=== PATIENT | female | born 1955 | race Caucasian/White ===

== ENCOUNTER → 2018-11-21 | Outpatient (CLI) | payer OTHER ==
[~2018-11-21] MED LIST: ALPRAZOLAM PO; AMBIEN 10 MG TA10 MG PO; CARISOPRODOL 3350 M1 PO; CELEXA 20 MG TA20 M1 PO; CELEXA PO; DEXILANT60 MG PO; DIAZEPAM 5 MG5 MG PO; ENDOCET 5-3251 EACH PO; HYDROCODON-ACE1 EAC7; HYDROCODON-ACE1 EACH PO; NABUMETONE 500500 M1 PO; NORCO 5-325 TA1 EACH PO; TRIAMTERENE-HC1 EAC1 PO; XANAX 0.25 MG0.25 MG PO
--- NOTE | 2018-11-23 06:50 | SLE ---
[facility] [place] [address] POLYSOMNOGRAPHY STUDY Name: GIOVANNY TRAN Room #: [facility]#: [id number] Admission: 11/21/18 ������������������ Attend Phys: Bennett Brizuela MD Discharge: ������������������ Date of : 53 Report #: [id number] THIS REPORT FOR: //name// CC: Bennett Horner DATE OF SERVICE: 11/21/2018 REFERRING PROVIDER: LAN Davis The patient is a 63-year-old who weighs 180 pounds with a BMI of 31.9. The patient's Vincent score was 0. The patient underwent diagnostic sleep study at [facility]. During the night study, the patient spent 413 minutes in bed and slept for 318 minutes with a sleep efficiency of 76%. Sleep latency was 22 minutes with a REM latency of 254 minutes. Overall sleep architecture showed increased stage 1 and stage 2 sleep, absent N3 sleep and significantly reduced REM sleep, which was only 0.5% of total sleep time. During the night study, the patient had no apneas and 11 hypopneas. The patient's apnea-hypopnea index was 2.1 per hour. REM AHI was 0 per hour due to no respiratory events during REM sleep. The patient's supine AHI was 5.5 per hour. EKG monitoring revealed normal sinus rhythm. Average heart rate 77 beats per minute. No sustained arrhythmias observed. PLMS were seen at index of 28.9 per hour and 2.6 per hour caused EEG arousals. Nocturnal oximetry study revealed an average oxygen saturation of 95% with the lowest of 88%. Only 0.4 minutes were spent at oxygen saturation of less than 89%. Due to low AHI, the patient did not meet the split night criteria for CPAP initiation. IMPRESSION: 1. No clinically significant sleep disordered breathing. The patient's apnea-hypopnea index for the entire night was only 2.1 per hour. 2. No clinically significant nocturnal hypoxia. 3. Moderate periodic limb movements of sleep. RECOMMENDATIONS: 1. The patient did not meet the criteria for CPAP initiation. [facility] [address] [place] [address] POLYSOMNOGRAPHY STUDY Name: GIOVANNY TRAN Room #: [facility]#: [id number] Admission: 11/21/18 ������������������ Attend Phys: Bennett Brizuela MD Discharge: ������������������ Date of : 53 Report #: [id number] 2. Weight loss is advised. 3. 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 4. PLMS does not need to be treated unless the patient has symptoms of restless legs during the day. ��������������������������������������������� <ELECTRONICALLY SIGNED> ���������������������������������������� By: Bennett Brizuela MD ��������������������������������������������� 11/23/18 0650 1828 1842 Bennett Brizuela MD /nt
== END ==
LOC: SLEEPLAB 20:09
DX: G47.10 Hypersomnia, unspecified (principal); G47.61 Periodic limb movement disorder; Z68.31 Body mass index [BMI] 31.0-31.9, adult

== ENCOUNTER 2020-03-05 13:56 | Inpatient (IN) | payer OTHER ==
[~2020-03-05] VITALS: Ht 160 cm; Wt 85.7 kg
[2020-03-05 13:57] VITALS: BP 119/71
[2020-03-05 16:07] LABS: ABSOLUTE NEUTROPHILS 5.8 thou/uL (1.4-8.2); EOSINOPHILS 2.4 % (0.0-3.0); HEMATOCRIT 34.5 % (37.0-47.0); HEMOGLOBIN 11.7 gm/dL (12.0-15.0); LYMPHOCYTES 19.5 % (24.0-44.0); MCH 30.9 pg (26.0-34.0); MCHC 33.9 g/dL (28.0-37.0); PLATELET COUNT 184 thou/uL (150-400); POLYS 72.1 % (36.0-66.0); RBC 3.79 mil/uL (4.20-5.00); RDW 14.6 % (10.5-14.5); WBC 8.1 thou/uL (4.0-11.0)
[2020-03-05 16:30] LABS: ALBUMIN 3.7 g/dL (3.4-5.0); CALCIUM 8.5 mg/dL (8.5-10.1); CREATININE 1.4 mg/dL (0.6-1.0); MAGNESIUM 2.1 mg/dL (1.8-2.4); PHOSPHORUS 3.7 mg/dL (2.5-4.9); TOTAL BILIRUBIN 0.3 mg/dL (0.2-1.0); TOTAL PROTEIN 6.8 g/dL (6.4-8.2); TROPONIN-I 0.1 ng/mL (<0.06)
[2020-03-05 16:32] LABS: POTASSIUM 2.5 mmol/L (3.5-5.1)
[2020-03-05 17:17] LABS: URINE BILIRUBIN NEGATIVE (Negative); URINE BLOOD NEGATIVE (Negative); URINE CLARITY CLEAR; URINE COLOR YELLOW; URINE GLUCOSE-RANDOM* NEGATIVE (Negative); URINE KETONES NEGATIVE (Negative); URINE LEUKOCYTES-REFLEX NEGATIVE (Negative); URINE NITRITE-REFLEX NEGATIVE (Negative); URINE PROTEIN (DIPSTICK) TRACE (Negative); URINE SPECIFIC GRAVITY 1.015 (1.005-1.035); URINE UROBILINOGEN 0.2 E.U./dl (0.2-1.0)
[2020-03-05 17:58] VITALS: BP 125/73
[2020-03-05 19:29] VITALS: BP 111/74
[2020-03-05 19:54] VITALS: BP 114/71
[2020-03-05] MEDS ORDERED: NEURONTIN 300M300 M2 (22:09)
--- NOTE | 2020-03-05 22:56 | NUR ---
PT ADMITTED TO UNIT AT APPROXIMATELY 1930. PT IS A/O X4 AND UP WITH SBA TO THE BR WITH A GB. PT C/O PAIN IN NECK AND BACK. PRN PAIN MEDICATION GIVEN DIRECTED. PT IS CURRENTLY LYING IN HER BED AND APPEARS TO BE SLEEPING. ADMISSION EDUCATION AND ASSESSMENT COMPLETED AND DOCUMENTED. EDUCATED PT ON FALL RISK PRECAUTIONS AND CALL LIGHT IS WITHIN REACH. WILL CONTINUE TO MONITOR.
[2020-03-06 06:03] LABS: HEMATOCRIT 30.4 % (37.0-47.0); HEMOGLOBIN 10.3 gm/dL (12.0-15.0); MCH 31.2 pg (26.0-34.0); MCHC 33.9 g/dL (28.0-37.0); MCV 92.1 fL (80.0-100.0); RBC 3.3 mil/uL (4.20-5.00); WBC 7.5 thou/uL (4.0-11.0)
[2020-03-06 06:34] LABS: CALCIUM 7.6 mg/dL (8.5-10.1); POTASSIUM 3.4 mmol/L (3.5-5.1)
[2020-03-06 07:16] VITALS: BP 106/61
--- NOTE | 2020-03-06 08:32 | EKG ---
[facility] [place] [address] ELECTROCARDIOGRAM REPORT Name: GIOVANNY TRAN Room #: 452-P ADM IN M.R.#: [id number] Admission: 03/05/20 Attend Phys: Alex Woodward MD Discharge: Date of : 53 Report #: [id number] THIS REPORT FOR: cc: Ceci Horner MD, Melanie MD Lundgren,Akash Darden MD [facility] ~ THIS REPORT FOR: //name// [facility] ED Test Date: 2020-03-05 Test Time: 17:20:29 Pat Name: GIOVANNY TRAN Department: Room: [facility] Gender: F Brand Representative: : 1955 Requested By: Jake Swift Order Number: [id number] MD: Akash Acevedo Measurements Intervals [place] Rate: 72 P: 33 MO: 144 QRS: 18 QRSD: 92 T: -9 QT: 474 QTc: 519 Interpretive Statements Sinus rhythm Abnormal R-wave progression, early transition Borderline T abnormalities, anterior leads Prolonged QT interval Compared to ECG 07/08/2012 11:26:58 T-wave abnormality now present Prolonged QT interval now present Electronically Signed On 03-06-2020 8:32:03 CDT by Akash Acevedo [email or web address] <ELECTRONICALLY SIGNED> By: Akash Acevedo MD, [facility] 03/06/20 0832 172 172 Akash Acevedo MD, [facility] /EPI
--- NOTE | 2020-03-06 11:47 | NUR ---
PT ADMITTED RELATED TO FALLS, WEAKNESS. CM REVIEWED CHART AND SPOKE WITH CARE TEAM. CM CALLED AND SPOKE WITH PT THIS DAY. PT APPEARED TO BE A&O X4. CM ROLE INTRODUCED. PT INDICATED SHE LIVES IN AN APARTMENT ALONE WITH 8 STEPS TO ENTER AND NONE INSIDE. 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 PT INDICATED NO DME OR HH HX. PT INDICATED SHE STILL DRIVES. PT INDICATED SHE IS RECEPTIVE TO HH SERVICES UPON DC. PT INDICATED NO PREFERENCE OF PROVIDERS. REFERRALS TO BE SENT. PT INDICATED SHE WILL NEED TRANSPORT HOME THIS DAY. CM TO CONFIRM HH PROVIDER THEN SET UP [facility]SP[facility]. CM TO INQUIRE WITH PHYSICIAN ABOUT WHETHER PT NEEDS A FWW FOR USE UPON DC. CM TO FOLLOW INDICATED WITH ANTICPATED DC HOME THIS DAY.
--- NOTE | 2020-03-06 12:19 | NUR ---
FAXED REFERRAL TO [facility] HH SPOKE WITH MITCHEL IN INTAKE SHE RECEIVED REFERRAL AND WILL ACCEPT. DP TO FOLLOW
[2020-03-06 12:20] VITALS: BP 106/61
[2020-03-06] MEDS ORDERED: ULTRA-LIGHT RO1 EACH (13:15)
[2020-03-06 13:23] VITALS: BP 106/61
[2020-03-06 15:23] VITALS: BP 106/61
--- NOTE | 2020-03-06 15:35 | NUR ---
Assumed pt care at 7am.Pt in bed resting without c/o.Assessment completed.vss. Pt tolerated diet and meds.Dr Woodward here and dc order noted.Walker supplied to pt for home use.Dc summary compile and reviewed with pt.Between 1600 &1630,pt will dc home per [facility].Pt ambulated in the room and hallways today with therapist.Good endurance noted.Will continue to monitor.
== END 2020-03-06 18:41 | disposition home health service (06) | DRG 557 ==
LOC: ER 13:56 → EROBS 17:46 → 4W 17:46
PROVIDERS: Emergency Medicine; ADMIT Hospitalist; ATTEND Hospitalist
DX: M62.82 Rhabdomyolysis (principal); N17.0 Acute kidney failure with tubular necrosis; E87.2 Acidosis; E87.6 Hypokalemia; M41.86 Other forms of scoliosis, lumbar region; E78.00 Pure hypercholesterolemia, unspecified; F17.210 Nicotine dependence, cigarettes, uncomplicated; I10 Essential (primary) hypertension; F32.9 Major depressive disorder, single episode, unspecified; F41.9 Anxiety disorder, unspecified; M62.84 Sarcopenia; G47.00 Insomnia, unspecified; S20.229A Contusion of unspecified back wall of thorax, initial encounter; S09.8XXA Other specified injuries of head, initial encounter; W18.39XA Other fall on same level, initial encounter; Z60.2 Problems related to living alone; Y93.89 Activity, other specified; Z79.899 Other long term (current) drug therapy; Y92.89 Other specified places as the place of occurrence of the external cause; Y99.8 Other external cause status
CPT/HCPCS: 10040; 10045

== ENCOUNTER 2020-03-14 15:11 | Inpatient (IN) | payer OTHER ==
[~2020-03-14] VITALS: Ht 160 cm; Wt 85.7 kg
[~2020-03-14 15:11] MED LIST changes: +NEURONTIN 300M300 M2; +ULTRA-LIGHT RO1 EACH
[2020-03-14 15:26] VITALS: BP 111/64
[2020-03-14 16:27] LABS: ABSOLUTE NEUTROPHILS 4.8 thou/uL (1.4-8.2); BASOPHILS 0.6 % (0.0-2.0); EOSINOPHILS 3.8 % (0.0-3.0); HEMOGLOBIN 9.5 gm/dL (12.0-15.0); LYMPHOCYTES 20.9 % (24.0-44.0); MCH 31.6 pg (26.0-34.0); MCHC 34.1 g/dL (28.0-37.0); MCV 92.7 fL (80.0-100.0); MONOCYTES 5.7 % (1.0-8.0); PLATELET COUNT 298 thou/uL (150-400); RBC 3.02 mil/uL (4.20-5.00); RDW 15.8 % (10.5-14.5)
[2020-03-14 16:36] LABS: ALBUMIN 3.3 g/dL (3.4-5.0); CALCIUM 8.7 mg/dL (8.5-10.1); MAGNESIUM 2.5 mg/dL (1.8-2.4); TOTAL BILIRUBIN 0.4 mg/dL (0.2-1.0); TOTAL PROTEIN 6.7 g/dL (6.4-8.2)
[2020-03-14 16:38] LABS: POTASSIUM 2.1 mmol/L (3.5-5.1)
[2020-03-14 17:56] VITALS: BP 140/80
[2020-03-14 18:10] VITALS: BP 140/80
[2020-03-14 18:16] LABS: % SATURATION 21 % (20-39); IRON 62 ug/dL (50-170); TIBC 300 ug/dL (250-450)
[2020-03-14 19:40] VITALS: BP 98/67
--- NOTE | 2020-03-14 20:03 | NUR ---
PT ARRIVED TO FLOOR FROM ED PER WC AT 1824 IN STABLE CONDITION.ADMISSION HX AND EDUCATION COMPLETED.VSS.BOX LUNCH GIVEN. REPORT OFF TO MARYELLEN RN.
[2020-03-14 20:36] LABS: TROPONIN-I <0.06 ng/mL (<0.06)
[2020-03-15 01:23] LABS: ABSOLUTE NEUTROPHILS 4.2 thou/uL (1.4-8.2); BASOPHILS 0.6 % (0.0-2.0); EOSINOPHILS 3.8 % (0.0-3.0); HEMATOCRIT 25.9 % (37.0-47.0); HEMOGLOBIN 8.8 gm/dL (12.0-15.0); LYMPHOCYTES 29.6 % (24.0-44.0); MCH 31.8 pg (26.0-34.0); MCHC 34.1 g/dL (28.0-37.0); MCV 93.2 fL (80.0-100.0); PLATELET COUNT 255 thou/uL (150-400); RBC 2.78 mil/uL (4.20-5.00); RDW 15.6 % (10.5-14.5)
[2020-03-15 01:37] LABS: CALCIUM 8.3 mg/dL (8.5-10.1); CREATININE 0.9 mg/dL (0.6-1.0); MAGNESIUM 2.4 mg/dL (1.8-2.4)
[2020-03-15 01:39] LABS: ALBUMIN 2.9 g/dL (3.4-5.0); CALCIUM 8.4 mg/dL (8.5-10.1); CREATININE 0.9 mg/dL (0.6-1.0); MAGNESIUM 2.4 mg/dL (1.8-2.4); PHOSPHORUS 2.2 mg/dL (2.5-4.9)
[2020-03-15 01:43] LABS: POTASSIUM 2.8 mmol/L (3.5-5.1)
--- NOTE | 2020-03-15 05:24 | NUR ---
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
[2020-03-15 07:27] VITALS: BP 130/60
--- NOTE | 2020-03-15 08:13 | EKG ---
[facility] [place] [address] ELECTROCARDIOGRAM REPORT Name: GIOVANNY TRAN Room #: 454-P ADM IN M.R.#: [id number] Admission: 03/14/20 Attend Phys: Dayanna Meadows MD Discharge: Date of : 53 Report #: [id number] THIS REPORT FOR: cc: Ceci Horner MD, Melanie MD Couchonnal,Gallo Frank MD ~ THIS REPORT FOR: //name// [facility] ED Test Date: 2020-03-14 Test Time: 16:59:04 Pat Name: GIOVANNY TRAN Department: Room: [facility] Gender: F Tool Distributor: no : 1955 Requested By: Eden Castle Order Number: [id number] MD: Gallo Lambert Measurements Intervals [place] Rate: 65 P: 31 [place]: 131 QRS: 13 QRSD: 94 T: -3 QT: 484 QTc: 504 Interpretive Statements Sinus rhythm Abnormal R-wave progression, early transition Borderline T abnormalities, diffuse leads Prolonged QT interval Compared to ECG 03/05/2020 17:20:29 No significant changes Electronically Signed On 03-15-2020 8:13:18 CDT by Gallo Lambert [email or web address] <ELECTRONICALLY SIGNED> By: Gallo Lambert MD 03/15/20812 165 58 Gallo Lambert MD /EPI
[2020-03-15 10:24] LABS: ABSOLUTE RETIC COUNT 0.1416 10^6/uL; OBSERVED RETIC COUNT 5.25 % (0.6-2.6)
[2020-03-15 10:32] LABS: % SATURATION 21 % (20-39); IRON 65 ug/dL (50-170); TIBC 313 ug/dL (250-450)
--- NOTE | 2020-03-15 15:03 | NUR ---
PT ADMITTED RELATED TO HYPOKALEMIA. CM REVIEWED CHART AND SPOKE WITH CARE TEAM. CM ATTEMPTED PC TO PT'S ROOM NUMEROUS TIMES THIS DAY WITH NO RESPONSE. PT IS FAMILAR TO CM FROM PREVIOUS ADMISSION. PT RESIDES IN AN APARTMENT ALONE WITH 8 STEPS TO ENTER AND NO STEPS INSIDE. 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 REFERRAL HAD BEEN SENT TO [facility] FOR HH SERVICES UPON DC HOME 03/06. CM CALLED [facility] TO NOTIFY THEM OF PT'S ADMISSION AND THEY INDICATED THAT THEY HADN'T BEEN ABLE TO START PT DUE TO LACK OF CONTACT. THEY INDICATED THAT THEY ANTICIPATE THAT THEY WOULD BE ABLE TO ACCEPT PT BACK IF SERVICES ARE NEEDED UPON DC. CM TO TRY TO CONFIRM CONTACT INFO AND UPDATE [facility]. PT ASSESSED PT AND INDICATED THAT SHE WOULD BE SAFE TO RETURN HOME WITH HH ONCE MEDICALLY STABLE THEY DISCHARGED PT. SHOULD PT BE MEDICALLY STABLE TO DC OVER THE WEEKEND CONTACT [facility] HOME HEALTH FAX ORDERD TO .
[2020-03-15 15:54] LABS: HEMATOCRIT 24.4 % (37.0-47.0); HEMOGLOBIN 8.3 gm/dL (12.0-15.0)
--- NOTE | 2020-03-15 16:20 | 2DMMODE ---
[facility] [place] [address] 2 D/M-MODE ECHOCARDIOGRAM Name: GIOVANNY TRAN Room #: 454-P ADM IN M.R.#: [id number] Admission: 03/14/20 Attend Phys: Dayanna Meadows MD Discharge: Date of : 53 Report #: [id number] THIS REPORT FOR: cc: Ceci Horner MD, Melanie MD Lammoglia, Francisco J. MD ~ APPROVED REPORT Study performed: 03/15/2020 14:34:47 EXAM: Comprehensive 2D, Doppler, and color-flow Echocardiogram Patient Location: Bedside Room #: 454 Status: routine BSA: 1.87 HR: 86 bpm BP: 130/60 mmHg Rhythm: NSR Other Information Study Quality: Adequate Indications Hypertension/HDD 2D Dimensions IVSd: 8.68 (7-11mm) LVOT Diam: 18.23 (18-24mm) LVDd: 44.58 mm PWd: 9.59 (7-11mm) Ascending Ao: 24.57 (22-36mm) LVDs: 27.65 (25-40mm) Aortic Root: 29.41 mm IVC: 21.00 mm Aortic Valve AoV Peak Joe.: 1.64 m/s AO Peak Gr.: 10.77 mmHg LVOT Max P.65 mmHg LVOT Max V: 1.47 m/s TEMO Vmax: 2.34 cm2 Mitral Valve E/A Ratio: 1.5 MV Decel. Time: 134.94 ms MV E Max Joe.: 1.27 m/s MV A Joe.: 0.87 m/s MV PHT: 39.13 ms [facility] [address] [place] [address] 2 D/M-MODE ECHOCARDIOGRAM Name: GIOVANNY TRAN Room #: 454-P [facility] IN [facility]#: [id number] Admission: 03/14/20 Attend Phys: Dayanna Meadows, Discharge: Date of : 53 Report #: [id number] IVRT: 59.98 ms Pulmonary Valve PV Peak Joe.: 0.94 m/s PV Peak Gr.: 3.53 mmHg Pulmonary Vein P Vein S: 0.69 m/s P Vein A: 0.29 m/s P Vein D: 0.49 m/s P Vein A Dur.: 101.5 msec P Vein S/D Ratio: 1.41 Tricuspid Valve TR Peak Joe.: 3.04 m/s TR Peak Gr.: 36.94 mmHg PA Pressure: 47.00 mmHg Left Ventricle The left ventricle is normal size. There is normal LV segmental wall motion. There is normal left ventricular wall thickness. The left ventricular systolic function is normal. The left ventricular ejection fraction is within the normal range. LVEF is 65-70%. This study is not technically sufficient to allow evaluation of the LV diastolic function. Right Ventricle The right ventricle is normal size. The right ventricular systolic function is normal. Atria Left atrium is at the upper limits of normal. Right atrium is at the upper limits of normal. Aortic Valve The aortic valve is normal in structure. The Aortic valve is sclerotic. Mild aortic regurgitation. There is no aortic valvular stenosis. Mitral Valve The mitral valve is normal in structure. Mild mitral regurgitation. No evidence of mitral valve stenosis. Tricuspid Valve The tricuspid valve is normal in structure. There is mild tricuspid regurgitation. Estimated PAP 47 mmHg. There is moderate pulmonary hypertension. Pulmonic Valve [facility] [address] [place] [address] 2 D/M-MODE ECHOCARDIOGRAM Name: GIOVANNY TRAN Room #: 454-P [facility] IN M.R.#: [id number] Admission: 03/14/20 Attend Phys: Dayanna Meadows, Discharge: Date of : 53 Report #: [id number] The pulmonary valve is normal in structure. There is no pulmonic valvular regurgitation. Great Vessels The aortic root is normal in size. IVC is dilated and collapses <50% with inspiration. Pericardium There is no pericardial effusion. <Conclusion> The left ventricle is normal size. LVEF is 65-70%. The aortic valve is normal in structure. The Aortic valve is sclerotic. Mild aortic regurgitation. The mitral valve is normal in structure. Mild mitral regurgitation. The tricuspid valve is normal in structure. There is mild tricuspid regurgitation. Estimated PAP 47 mmHg. There is moderate pulmonary hypertension. The pulmonary valve is normal in structure. There is no pericardial effusion. <ELECTRONICALLY SIGNED> By: Ty Zamora MD 03/15/20 1619 18 18 Ty Zamora MD /INF
[2020-03-15 18:05] LABS: MAGNESIUM 2.2 mg/dL (1.8-2.4); PHOSPHORUS 1.9 mg/dL (2.5-4.9)
[2020-03-15 18:08] LABS: POTASSIUM 4.3 mmol/L (3.5-5.1)
--- NOTE | 2020-03-15 19:21 | NUR ---
Assumed pt care at 7am.Pt in and out of bed with assist x1.Assessment completed.vss.Pt has good appetite at all meals and tolerated meds.Dr Meadows her e,order noted.Consult called to Jake and message left.Later this evening,pt requested for sleepin aid and lidocaine patch.Dr Meadows notified and order noted.Pain pill given later this evening with partial relief.Will continue to monitor.
[2020-03-15 19:54] VITALS: BP 125/68
--- NOTE | 2020-03-16 05:09 | NUR ---
PATIENT ALERT AND ORIENTED X4. COOPERATIVE WITH CARE. IVF INFUSING W/O COMPLICATION. DENIES PAIN. REQUESTED AND GIVEN SLEEP AID WITH GOOD RESULTS. TELE WITH NSR. UP TO BATHROOM WITH SBA. AM LABS, WILL MONITOR. RESTING QUIETLY.
[2020-03-16 05:52] LABS: ABSOLUTE NEUTROPHILS 3.5 thou/uL (1.4-8.2); BASOPHILS 0.6 % (0.0-2.0); EOSINOPHILS 2.7 % (0.0-3.0); HEMATOCRIT 23.1 % (37.0-47.0); HEMOGLOBIN 7.8 gm/dL (12.0-15.0); LYMPHOCYTES 30.8 % (24.0-44.0); MCH 32.1 pg (26.0-34.0); MCHC 33.8 g/dL (28.0-37.0); MONOCYTES 5.8 % (1.0-8.0); PLATELET COUNT 233 thou/uL (150-400); POLYS 60.1 % (36.0-66.0); RBC 2.44 mil/uL (4.20-5.00); RDW 16.8 % (10.5-14.5); WBC 5.8 thou/uL (4.0-11.0)
[2020-03-16 06:47] LABS: ALBUMIN 2.6 g/dL (3.4-5.0); CALCIUM 8.1 mg/dL (8.5-10.1); CREATININE 0.7 mg/dL (0.6-1.0); MAGNESIUM 2.1 mg/dL (1.8-2.4); PHOSPHORUS 2.7 mg/dL (2.5-4.9); POTASSIUM 4.8 mmol/L (3.5-5.1); TOTAL BILIRUBIN 0.2 mg/dL (0.2-1.0); TOTAL PROTEIN 5.6 g/dL (6.4-8.2)
[2020-03-16 08:26] VITALS: BP 108/57
[2020-03-16 15:28] VITALS: BP 104/74
[2020-03-16 19:20] VITALS: BP 139/72
--- NOTE | 2020-03-16 19:28 | NUR ---
Assumed pt care at 7am.Assessment completed.vss.pt reported sleeping good last night like a baby.Dr Woodward and Rafia here early this shift ,order noted.Pt has good appetite and loves talking.K+ level today was 4.8 Pt up to br several times with assist.Pain med given once this shift with relief.Fall precaution in place.Will continue to monitor.
--- NOTE | 2020-03-17 02:56 | NUR ---
ASSUMED CARE OF PT AT 1900. PT IS A/O X4. VSS. AFEBRILE. C/O PAIN AND INSOMNIA. PRN PAIN AND SLEEP MEDICATION GIVEN DIRECTED. CURRENTLY, PT IS IN HER BED AND APPEARS TO BE WATCHING TV. FALL PRECAUTIONS ARE IN PLACE, CALL LIGHT IS WITHIN REACH. WILL CONTINUE TO MONITOR.
[2020-03-17 05:41] LABS: HEMOGLOBIN 8.5 gm/dL (12.0-15.0); MCH 32.6 pg (26.0-34.0); MCHC 33.8 g/dL (28.0-37.0); MCV 96.3 fL (80.0-100.0); RBC 2.6 mil/uL (4.20-5.00); RDW 19.1 % (10.5-14.5); WBC 6.9 thou/uL (4.0-11.0)
[2020-03-17 05:58] LABS: CALCIUM 8.9 mg/dL (8.5-10.1); CREATININE 0.7 mg/dL (0.6-1.0); POTASSIUM 4.1 mmol/L (3.5-5.1)
[2020-03-17 07:32] VITALS: BP 111/72
[2020-03-17] MEDS ORDERED: PROTONIX 20 MG20 MG PO (09:00)
--- NOTE | 2020-03-17 09:26 | NUR ---
A/O, calm and pleasant; claiming of feeling well, excited about the discharge.
[2020-03-17 09:27] VITALS: BP 111/72
--- NOTE | 2020-03-17 11:42 | NUR ---
DC paper faxed to [phone], have tried to do report to [phone] times, no reponse yet, will keep trying.
--- NOTE | 2020-03-17 16:26 | NUR ---
Called [phone], taked to [place] about the DC and fax, left the phone number of [facility] for [facility].
[2020-03-18 11:46] VITALS: BP 111/72
--- NOTE | 2020-03-18 15:45 | NUR ---
PT DISCHARGED ON SATURDAY 03/17 FAXED DC ORDERS/SUMMARY TO [facility] HH RECEIVED CONFIRMATION.
--- NOTE | 2020-03-21 03:59 | HC ---
[facility] [place] [address] CONSULTATION Name: GIOVANNY TRAN Room #: 454-P [facility] IN M.R.#: [id number] Admission: 03/14/20 Attend Phys: Dayanna Meadows MD Discharge: 03/17/20 Date of : 53 Report #: [id number] THIS REPORT FOR: cc: Ceci Horner MD,Sanchez Werner MD, MD ~ CC: Dayanna Horner HISTORY OF PRESENT ILLNESS: This is a 64-year-old female patient who is difficult to evaluate. She says that she had some episodes where she lost the strength in the arm and legs. She was too weak. She is still weak. She was found to have a lot of electrolyte imbalances and that is being corrected and she is feeling better. In fact, her potassium went as low as 2.1. She also has low potassium even before that. She does not know what triggered it. She already had an MRI of the brain and carotid Doppler and they were unremarkable. She was conscious during this episode. REVIEW OF SYSTEMS: Positive for hypertension, anxiety, depression. Rest of the 14-point review of systems noncontributory. PAST MEDICAL HISTORY: Positive for carpal tunnel syndrome. She has scoliosis. FAMILY HISTORY: Noncontributory. SOCIAL HISTORY: Unremarkable. PHYSICAL EXAMINATION: Indicate she is alert. She is responsive, able to follow simple and complex command. Speech and concentration looks unremarkable. Cranial nerve examinations appear unremarkable. Neuromuscular examinations appear unremarkable. There is no cerebellar sign. I could not look at the fundus. Cardiac examinations appear noncontributory. No respiratory difficulty was noticed. Pulses appeared to be palpable. Blood pressure is 125/68, respirations 18, pulse 82, temperature is 97.6. LABORATORY DATA: Indicate low hemoglobin at 8.3. Multiple electrolyte abnormalities. IMPRESSION: The patient's episode appeared to be because of systemic problems including low potassium. The patient has no family history of periodic hypokalemia, so I do not think it is hereditary and I think other causes may have to be worked up. We may get an EEG done and may get an MRA of the head on Wednesday, but I think the emphasis should be to workup and evaluate systemic causes. [address] [address] CONSULTATION Name: GIOVANNY TRAN Room #: 454-P [facility] IN ..#: [id number] Admission: 03/14/20 Attend Phys: Dayanna Meadows MD Discharge: 03/17/20 Date of : 53 Report #: [id number] Thank you very much for this referral. <ELECTRONICALLY SIGNED> By: Sanchez Umana MD 03/21/20 0359 2108 14 Sanchez Umana MD /nt
--- NOTE | 2020-03-21 04:00 | EEG ---
[facility] [place] [address] ELECTROENCEPHALOGRAM Name: GIOVANNY TRAN Room #: 454-P [facility] IN M.R.#: [id number] Admission: 03/14/20 Attend Phys: Dayanna Meadows MD Discharge: 03/17/20 Date of : 53 Report #: [id number] THIS REPORT FOR: //name// CC: Dayanna Horner DATE OF SERVICE: 03/16/2020 This patient is being evaluated for altered mental status. EEG was done by placing the electrode by standard 10-20 system of electrode placement. Both referential and sequential montages were used for recording. Background activity in this patient's EEG is about 9 Hz and 30 microvolt. Photic stimulation is unremarkable. The patient became drowsy that was associated with bilateral slowing and vertex sharp waves. Throughout the record, no active epileptiform activity was noticed. IMPRESSION: This patient's EEG is unremarkable. Thank you very much for this referral. <ELECTRONICALLY SIGNED> By: Sanchez Umana MD 03/21/20 0400 1709 1718 Sanchez Umana MD /nt
== END 2020-03-17 11:16 | disposition home health service (06) | DRG 682 ==
LOC: ER 15:11 → EROBS 17:24 → 4W 17:24
PROVIDERS: Hospitalist; Nurse Practitioner; Physician Assistant; ADMIT Internal Medicine; ATTEND Internal Medicine
DX: I12.9 Hypertensive chronic kidney disease with stage 1 through stage 4 chronic kidney disease, or unspecified chronic kidney disease (principal); E43 Unspecified severe protein-calorie malnutrition; E87.6 Hypokalemia; M41.86 Other forms of scoliosis, lumbar region; F41.9 Anxiety disorder, unspecified; E53.8 Deficiency of other specified B group vitamins; F32.9 Major depressive disorder, single episode, unspecified; N18.3 Chronic kidney disease, stage 3 (moderate); R53.81 Other malaise; D63.1 Anemia in chronic kidney disease; G47.00 Insomnia, unspecified; F10.10 Alcohol abuse, uncomplicated; E66.9 Obesity, unspecified; T50.2X5A Adverse effect of carbonic-anhydrase inhibitors, benzothiadiazides and other diuretics, initial encounter; R53.1 Weakness; Z60.2 Problems related to living alone; Y92.89 Other specified places as the place of occurrence of the external cause; Z79.899 Other long term (current) drug therapy; Z68.33 Body mass index [BMI] 33.0-33.9, adult
CPT/HCPCS: 10045